=== PATIENT | male | born 1995 | race Caucasian/White ===

== ENCOUNTER 2019-06-29 08:41 | Emergency (ER) | payer OTHER ==
[2019-06-29] MEDS ORDERED: Albuterol/Ipratropium 3.0-0.5 MG/3 ML Neb Soln NEB ONE (09:12)
--- NOTE | 2019-06-29 10:01 | CR ---
INDICATION: Cough. TECHNIQUE: Single portable AP view. COMPARISON: None. FINDINGS: The heart, mediastinum, and pulmonary vessels are within normal limits. The lungs are clear. There is no sign of pneumothorax. Pulmonary vessels are not enlarged. Metallic spinal rods in the visualized portions of lower thoracic spine. IMPRESSION: No acute abnormalities identified on single-view chest. Dictated by Isak Ozuna MD @ Jun 29 2019 9:59AM Signed by Dr. Isak Ozuna @ Jun 29 2019 10:00AM
--- NOTE | 2019-06-29 10:10 | EDM.PDOC ---
ED HPI GENERAL MEDICAL PROBLEM - General Chief Complaint: Respiratory Problem Stated Complaint: COUGH Time Seen by Provider: 06/29/19 09:56 - History of Present Illness INITIAL COMMENTS - FREE TEXT/NARRATIVE: HISTORY AND PHYSICAL: History of present illness: Patient's 24-year-old white male presents with a concern of cough congestion cold symptoms worse over last several days he denies fever chills nausea vomiting or other complaints Review of systems: As per history of present illness and below otherwise all systems reviewed and negative. Past medical history: As per history of present illness and as reviewed below otherwise noncontributory. Surgical history: As per history of present illness and as reviewed below otherwise noncontributory. Social history: No reported history of drug or alcohol abuse. Family history: As per history of present illness and as reviewed below otherwise noncontributory. Physical exam: HEENT: Atraumatic, normocephalic, pupils reactive, negative for conjunctival pallor or scleral icterus, mucous membranes moist, throat clear, neck supple, nontender, trachea midline. Lungs: Coarse bilaterally, breath sounds equal bilaterally, chest nontender. Heart: S1S2, regular, negative for clicks, rubs, or JVD. Abdomen: Soft, nondistended, nontender. Negative for masses or hepatosplenomegaly. Negative for costovertebral tenderness. Pelvis: Stable nontender. Genitourinary: Deferred. Rectal: Deferred. Extremities: Atraumatic, negative for cords or calf pain. Neurovascular unremarkable. Neuro: Awake, alert, oriented. Cranial nerves II through XII unremarkable. Cerebellum unremarkable. Motor and sensory unremarkable throughout. Exam nonfocal. Diagnostics: CBC chest x-ray Therapeutics: Albuterol ipratropium nebulizer Impression: #1 tracheobronchitis Definitive disposition and diagnosis as appropriate pending reevaluation and review of above. Generalize Aches Pain Score (Numeric/FACES): 6 - Related Data Allergies Allergy/AdvReac Type Severity Reaction Status Date / Time No Known Allergies Allergy Verified 06/29/19 08:59 Home Meds: Home Meds . [No Known Home Meds] 06/29/19 [History] Past Medical History - Past Health History Medical/Surgical History: Denies Medical/Surgical History Musculoskeletal History: Reports: Fracture - Past Surgical History Musculoskeletal Surgical History: Reports: Other (See Below) Other Musculoskeletal Surgeries/Procedures:: Hardware placed in spine. Social & Family History - Family History Family Medical History: Noncontributory - Tobacco Use Smoking Status *Q: Current Every Day Smoker Years of Tobacco use: 2 Packs/Tins Daily: 1 - Recreational Drug Use Recreational Drug Use: No ED ROS GENERAL - Review of Systems Review Of Systems: ROS reveals no pertinent complaints other than HPI. ED EXAM, GENERAL - Physical Exam Exam: See Below (See dictation) Course - Vital Signs Last Recorded V/S: Last Vital Signs Temp 36.0 C 06/29/19 08:59 Pulse 78 06/29/19 08:59 Resp 18 06/29/19 08:59 BP 125/86 06/29/19 08:59 Pulse Ox 96 06/29/19 08:59 - Orders/Labs/Meds Orders: Active Orders 24 hr Category Date Time Status RT Aerosol Therapy [RC] ASDIRECTED Care 06/29/19 09:14 Active Labs: Laboratory Tests 06/29/19 Range/Units 09:23 WBC 7.72 (4.0-11.0) K/uL RBC 5.02 (4.50-5.90) M/uL Hgb 15.7 (13.0-17.0) g/dL Hct 45.7 (38.0-50.0) % MCV 91.0 (80.0-98.0) fL MCH 31.3 (27.0-32.0) pg MCHC 34.4 (31.0-37.0) g/dL RDW Std Deviation 42.3 (28.0-62.0) fl RDW Coeff of Neo 13 (11.0-15.0) % Plt Count 302 (150-400) K/uL MPV 10.00 (7.40-12.00) fL Neut % (Auto) 47.0 L (48.0-80.0) % Lymph % (Auto) 28.9 (16.0-40.0) % Peach % (Auto) 9.8 (0.0-15.0) % Eos % (Auto) 14.0 H (0.0-7.0) % Baso % (Auto) 0.3 (0.0-1.5) % Neut # (Auto) 3.6 (1.4-5.7) K/uL Lymph # (Auto) 2.2 (0.6-2.4) K/uL Peach # (Auto) 0.8 (0.0-0.8) K/uL Eos # (Auto) 1.1 H (0.0-0.7) K/uL Baso # (Auto) 0.0 (0.0-0.1) K/uL Nucleated RBC % 0.0 /100WBC Nucleated RBCs # 0 K/uL Meds: Medications Discontinued Medications Generic Name Dose Route Start Last Admin Trade Name Vandana PRN Reason Stop Dose Admin Albuterol/Ipratropium 3 ml 06/29/19 09:12 06/29/19 09:24 Duoneb 3.0-0.5 Mg/3 Ml NEB 06/29/19 09:13 3 ml ONETIME ONE Administration Departure - Departure Time of Disposition: 10:10 Disposition: Home, Self-Care 01 Condition: Good Clinical Impression: Tracheobronchitis - Discharge Information Referrals: PCP,None [Primary Care Provider] - Additional Instructions: The following information is given to patients seen in the emergency department who are being discharged to home. This information is to outline your options for follow-up care. We provide all patients seen in our emergency department with a follow-up referral. The need for follow-up, as well as the timing and circumstances, are variable depending upon the specifics of your emergency department visit. If you don't have a primary care physician on staff, we will provide you with a referral. We always advise you to contact your personal physician following an emergency department visit to inform them of the circumstance of the visit and for follow-up with them and/or the need for any referrals to a consulting specialist. The emergency department will also refer you to a specialist when appropriate. This referral assures that you have the opportunity for followup care with a specialist. All of these measure are taken in an effort to provide you with optimal care, which includes your followup. Under all circumstances we always encourage you to contact your private physician who remains a resource for coordinating your care. When calling for followup care, please make the office aware that this follow-up is from your recent emergency room visit. If for any reason you are refused follow-up, please contact the [facility] emergency department at and asked to speak to the emergency department charge nurse. Z-Lenny albuterol Tylenol with codeine elixir as prescribed follow-up primary medical doctor as needed discussed return as needed as discussed - My Orders Last 24 Hours: My Active Orders 06/29/19 09:14 RT Aerosol Therapy [RC] ASDIRECTED - Assessment/Plan Last 24 Hours: My Active Orders 06/29/19 09:14 RT Aerosol Therapy [RC] ASDIRECTED
== END 2019-06-29 10:22 | disposition home or self-care (01) ==
LOC: MW.ED 08:41
DX: J40 Bronchitis, not specified as acute or chronic (principal); F17.200 Nicotine dependence, unspecified, uncomplicated
CPT/HCPCS: 36415; 71045; 71045-26; 85025; 87804; 99283; 99284-25; J7620-GY